=== PATIENT | male | born 1950 | race Caucasian/White ===

== ENCOUNTER 2023-03-17 14:47 | Outpatient (CLI) | payer MEDICARE, SELFPAY ==
[2023-03-17 11:52] LABS: ESR < 1 mm/hr (0-20)
[2023-03-17 12:09] LABS: Hemoglobin A1C 5.4 % (<5.7)
[2023-03-17 12:55] LABS: ALT 37 U/L (16-63); AST 19 U/L (15-37); Albumin 3.6 g/dL (3.4-5.0); Alkaline Phosphatase 96 U/L (46-116); Anion Gap 3.2 mmol/L (3-11); BUN 13 mg/dL (7-18); Bilirubin, Total 1.2 mg/dL (0.2-1.0); CO2 30.8 mmol/L (21.0-32.0); CREATININE 1.2 mg/dL (0.70-1.30); Calcium 8.5 mg/dL (8.5-10.1); Chloride 104 mmol/L (98-107); Estimated GFR 63.46 (mL/min/1.73m2); Glucose 96 mg/dL (74-106); Potassium 4.3 mmol/L (3.5-5.1); Sodium 138 mmol/L (136-145); TSH (W/Ref FT4) 2.13 uIU/mL (0.36-3.74); Total Protein 6.7 g/dL (6.4-8.2); Vitamin B12 1594 pg/mL (193-986)
[2023-03-18 09:25] LABS: Lyme Ab w Rflx to Lyme Confirm Negative (Negative)
[2023-03-19 14:13] LABS: ANA Interpretation Negative (Negative)
[2023-03-19 21:26] LABS: Anaplasma phagocytophilum Negative (Negative); B. miyamotoi PCR Negative (Negative); Babesia divergens/MO-1 Negative (Negative); Babesia duncani Negative (Negative); Babesia microti Negative (Negative); Ehrlichia chaffeensis Negative (Negative); Ehrlichia ewingii/canis Negative (Negative); Ehrlichia muris eauclairensis Negative (Negative)
== END 2023-03-17 14:48 | disposition home or self-care (01) ==
LOC: LBO 14:49
PROVIDERS: Visit Provider Nurse Practitioner
DX: G47.00 Insomnia, unspecified (principal); G62.9 Polyneuropathy, unspecified; M54.50 Low back pain, unspecified; E16.2 Hypoglycemia, unspecified; R20.0 Anesthesia of skin; R20.2 Paresthesia of skin
CPT/HCPCS: 36415; 80053; 85652; 87798; 82607; 83036; 84443; 86038; 86618

== ENCOUNTER 2025-02-16 13:24 | Outpatient (CLI) | payer MEDICARE, MEDICAID, SELFPAY ==
[2025-02-16 09:35] LABS: Abs Immature Grans 0.02 10^3/uL (0.0-0.06); HCT 45.3 % (40.0-50.0); HGB 14.9 g/dL (13.5-17.5); Immature Grans % 0.3 %; MCH 30.2 pg (27.0-33.0); MCHC 32.9 % (32.0-36.0); MCV 92 fL (80-95); MPV 9.1 fL (8.0-11.0); Platelet Count 260 10^3/uL (130-400); RBC 4.93 10^6/uL (4.36-5.78); RDW 12.8 % (11.8-14.1); RDW-SD 43.1 fL; WBC 6.12 10^3/uL (4.4-10.8)
[2025-02-16 09:49] LABS: Glucose Negative (Negative)
[2025-02-16 10:06] LABS: Hemoglobin A1C 5.4 % (<5.7)
[2025-02-16 11:24] LABS: ALT 37 U/L (16-63); AST 21 U/L (15-37); Albumin 4.0 g/dL (3.4-5.0); Alkaline Phosphatase 97 U/L (46-116); Anion Gap 5.4 mmol/L (3-11); BUN 13 mg/dL (7-18); Bilirubin, Total 1.0 mg/dL (0.2-1.0); CO2 31.6 mmol/L (21.0-32.0); Calcium 8.9 mg/dL (8.5-10.1); Calculated LDL 150 mg/dL (<100); Chloride 102 mmol/L (98-107); Cholesterol 244 mg/dL (<200); Estimated GFR 70.01 (mL/min/1.73m2); Glucose 106 mg/dL (74-106); HDL Cholesterol 78 mg/dL (>or=40); Magnesium 2.1 mg/dL (1.8-2.4); Potassium 4.3 mmol/L (3.5-5.1); Sodium 139 mmol/L (136-145); TSH 1.53 uIU/mL (0.36-3.74); Total Protein 7.2 g/dL (6.4-8.2); Triglyceride 84 mg/dL (<150)
[2025-02-16 11:51] LABS: Bilirubin, Direct 0.2 mg/dL (0.0-0.2)
[2025-02-16 18:07] LABS: PSA, Screening 2.4 ng/mL (<=6.5)
== END 2025-02-16 13:25 | disposition home or self-care (01) ==
LOC: LBO 13:25
PROVIDERS: PCP Nurse Practitioner; Visit Provider Family Medicine
DX: D64.9 Anemia, unspecified (principal); Z13.9 Encounter for screening, unspecified; R53.83 Other fatigue; R25.2 Cramp and spasm; Z13.6 Encounter for screening for cardiovascular disorders; E80.6 Other disorders of bilirubin metabolism; Z13.1 Encounter for screening for diabetes mellitus; R35.1 Nocturia
CPT/HCPCS: 36415; 80053; 80061; 84153; 81003; 82248; 83036; 83735; 84443; 85025

== ENCOUNTER 2025-06-06 10:49 | Outpatient (CLI) | payer MEDICARE, MEDICAID, SELFPAY ==
[2025-06-06 11:59] LABS: TSH (W/Ref FT4) 1.64 uIU/mL (0.55-4.78); Vitamin B12 1392 pg/mL (211-911)
[2025-06-07 10:52] LABS: Kappa Free Light Chain 1.46 mg/dL (0.33-1.94); Lambda Free Light Chain 1.27 mg/dL (0.57-2.63)
[2025-06-07 13:34] LABS: Albumin 65.3 % (55.8-66.1); Albumin g/dL 4.6 g/dL (3.6-5.2); Alpha 1 g/dL 0.20 g/dL (0.15-0.40); Alpha 2 g/dL 0.60 g/dL (0.50-1.00); Beta g/dL 0.70 g/dL (0.60-1.20); Gamma g/dL 0.90 g/dL (0.60-1.60); Total Protein 7.0 g/dL (6.3-8.2)
[2025-06-09 07:18] LABS: Thiamine (Vitamin B1), WB 130 nmol/L (70-180)
[2025-06-09 10:41] LABS: Pyridoxal 5-Phosphate (PLP), P 13 mcg/L (5-50)
== END 2025-06-06 10:50 | disposition home or self-care (01) ==
LOC: LBO 10:50
PROVIDERS: PCP Nurse Practitioner; Visit Provider Psychiatry & Neurology Neurology
DX: R29.2 Abnormal reflex (principal); G62.9 Polyneuropathy, unspecified
CPT/HCPCS: 36415; 82607; 83883; 84165; 84207; 84425; 84443